=== PATIENT | male | born 1995 | race Two or more races ===

== ENCOUNTER 2019-12-23 16:56 | Emergency (ER) | payer BC ==
[~2019-12-23] VITALS: Ht 175.3 cm; Wt 88.0 kg
[2019-12-23 16:57] VITALS: BP 162/76
[2019-12-23] MEDS ORDERED: valACYclovir 500 MG TABLET. PO STA (17:34)
--- NOTE | 2019-12-23 17:41 | PHYS DOC ---
Past History Past Medical History: Asthma Past Surgical History: No Surgical History Alcohol Use: Occasionally General Adult EDM: Chief Complaint: TESTICULAR PAIN OR INJURY HPI: HPI: 24-year-old male presents with genital ulcers. The patient states that these ulcers started a few days ago. The ulcers are very painful. He went to an urgent care and was diagnosed with molluscum contagiosum. Patient has not been sexually active for several months. He has never had lesions like this before. He denies any other sexual behavior with potential exposure to STD. He has never tested positive for STD. Patient denies fever or chills. Review of Systems: Review of Systems: Constitutional: Denies fever or chills Eyes: Denies change in visual acuity HENT: Denies nasal congestion or sore throat Respiratory: Denies cough or shortness of breath Cardiovascular: Denies chest pain or edema GI: Denies abdominal pain, nausea, vomiting, bloody stools or diarrhea : Scrotal ulcers Musculoskeletal: Denies back pain or joint pain Integument: Denies rash Neurologic: Denies headache, focal weakness or sensory changes Endocrine: Denies polyuria or polydipsia Lymphatic: Denies swollen glands Psychiatric: Denies depression or anxiety Heart Score: Risk Factors: Risk Factors: DM, Current or recent (<one month) smoker, HTN, HLP, family history of CAD, obesity. Risk Scores: Score 0 - 3: 2.5% MACE over next 6 weeks - Discharge Home Score 4 - 6: 20.3% MACE over next 6 weeks - Admit for Clinical Observation Score 7 - 10: 72.7% MACE over next 6 weeks - Early Invasive Strategies Allergies: Allergies: Allergies Coded Allergies Type Severity Reaction Last Updated Verified No Known Drug Allergies 12/23/19 No Physical Exam: PE: Constitutional: Well developed, well nourished, no acute distress, non-toxic appearance. [] HENT: Normocephalic, atraumatic, bilateral external ears normal, oropharynx moist, no oral exudates, nose normal. [] Eyes: PERRLA, EOMI, conjunctiva normal, no discharge. [] Neck: Normal range of motion, no tenderness, supple, no stridor. [] Cardiovascular:Heart rate regular rhythm, no murmur [] Lungs & Thorax: Bilateral breath sounds clear to auscultation [] Abdomen: Bowel sounds normal, soft, no tenderness, no masses, no pulsatile masses. [] Skin: Patient has multiple weeping ulcerations to the penis and base of the scrotum. [] Back: No tenderness, no CVA tenderness. [] Extremities: No tenderness, no cyanosis, no clubbing, ROM intact, no edema. [] Neurologic: Alert and oriented X 3, normal motor function, normal sensory function, no focal deficits noted. [] Psychologic: Affect normal, judgement normal, mood normal. [] Current Patient Data: Vital Signs: Vital Signs Date Time Temp Pulse Resp B/P (MAP) Pulse Ox O2 Delivery O2 Flow Rate FiO2 12/23/19 16:57 98.4 50 18 162/76 (104) 98 12/23/19 16:56 Room Air EKG: EKG: [] Radiology/Procedures: Radiology/Procedures: [] Course & Med Decision Making: Course & Med Decision Making Pertinent Labs and Imaging studies reviewed. (See chart for details) I have ordered an HSV as well as a viral culture. I will treat the patient empirically for same related, syphilis, and herpes. I have ordered 2050 mg of Rocephin IM, 1 g of azithromycin p.o., and a gram of Valtrex p.o. I will discharge him with 7 days of Valtrex 1 g twice daily. He is stable for discharge at this time. [] Dragon Disclaimer: Dragon Disclaimer: This electronic medical record was generated, in whole or in part, using a voice recognition dictation system. Departure Departure: Impression: Primary Impression: Skin ulcer of scrotum Disposition: HOME/RESIDENCE PRIOR TO ADM Condition: STABLE Referrals: ALEXA GIRARD MD (PCP) Scripts Valacyclovir Hcl (VALTREX) 1,000 Mg Tablet 1 TAB PO BID for herpes, #20 TAB Prov: SHAHID CARRANZA DO 12/23/19 Hydrocodone Bit/Acetaminophen (NORCO 5-325 TABLET) 1 Each Tablet 1 TAB PO PRN Q6HRS PRN for PAIN, #14 TAB 0 Refills Prov: SHAHID CARRANZA DO 12/23/19 Justification of Admission: Justification of Admission: Justification of Admission Dx: N/A SHAHID CARRANZA DO Dec 23, 2019 17:40
[2019-12-23] MEDS ORDERED: AZITHROMYCIN 250 MG TABLET. PO ONE (17:45)
[2019-12-23] MEDS ORDERED: cefTRIAXone IM 250 MG VIAL IM ONE (17:45)
[2019-12-23] MEDS ORDERED: VALA10005 PO (18:01)
[2019-12-23] MEDS ORDERED: HYDR-3165 PO (18:01)
[2019-12-23] MEDS ORDERED: LIDOCAINE 1% Multi-Dose 20 ML VIAL. ONE (18:09)
== END 2019-12-23 18:29 | disposition home or self-care (01) ==
LOC: ER 16:56
DX: L98.499 Non-pressure chronic ulcer of skin of other sites with unspecified severity (principal); N50.89 Other specified disorders of the male genital organs; J45.909 Unspecified asthma, uncomplicated
CPT/HCPCS: 87252; 96372; 99283; J0456; J0696

== ENCOUNTER → 2020-02-13 | Outpatient (CLI) | payer BC ==
[~2020-02-13] MED LIST: HYDR-3165 PO; VALA10005 PO
== END ==
LOC: LAB 10:26
PROVIDERS: ATTEND Physician Assistant
DX: Z20.828 Contact with and (suspected) exposure to other viral communicable diseases (principal)
CPT/HCPCS: 36415; 84484

== ENCOUNTER → 2020-07-05 | Outpatient (CLI) | payer BC ==
--- NOTE | 2020-07-05 12:11 | RAD ---
XR SHOULDER_RIGHT 2+ VIEWS DATE: 07/05/2020 11:09 AM INDICATION: RIGHT SHOULDER AND ELBOW PAIN COMPARISON: None. FINDINGS: Bones: There is no evidence of acute fracture or dislocation. Joints: The joint spaces are normal. The acromiohumeral distance is not narrowed. Miscellaneous: No abnormal soft tissue calcifications in the shoulder. IMPRESSION: Normal exam Electronically signed by: Cullen Ellis MD (07/05/2020 12:09 PM) [id number]
--- NOTE | 2020-07-05 13:28 | RAD ---
PROCEDURE: XR ELBOW_RIGHT STUDY DATE: 07/05/2020 CLINICAL INDICATION / HISTORY: Reason: RIGHT SHOULDER AND ELBOW PAIN / Spl. Instructions: / History: . TECHNIQUE: Right Elbow 2 views COMPARISON: None FINDINGS: Two views of the right elbow demonstrate no evidence of fracture, subluxation, or dislocati on. Small osteophyte on the coronoid process of the ulna is noted. Soft tissues unremarkable. 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 Otherw ise negative two-view right elbow. Electronically signed by: Jake Owusu MD (07/05/2020 1:25 PM) [id number]
== END ==
LOC: DXRAD 11:02
PROVIDERS: ATTEND Physician Assistant
DX: M19.021 Primary osteoarthritis, right elbow (principal); M25.721 Osteophyte, right elbow; M25.511 Pain in right shoulder
CPT/HCPCS: 73030; 73070

== ENCOUNTER 2021-01-03 18:20 | Emergency (ER) | payer OTHER, BC ==
[~2021-01-03] VITALS: Ht 175.3 cm; Wt 94.9 kg
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
[2021-01-03 18:29] VITALS: BP 135/73
[2021-01-03] MEDS ORDERED: IBUPROFEN 600 MG TABLET. PO ONE (18:30)
[2021-01-03] MEDS ORDERED: ACETAMINOPHEN 500 MG TABLET PO ONE (18:30)
== END 2021-01-03 18:42 | disposition home or self-care (01) ==
LOC: ER 18:20
DX: M25.511 Pain in right shoulder (principal); M25.512 Pain in left shoulder; J45.909 Unspecified asthma, uncomplicated; V49.9XXA Car occupant (driver) (passenger) injured in unspecified traffic accident, initial encounter; Y93.89 Activity, other specified; Y92.89 Other specified places as the place of occurrence of the external cause; Y99.8 Other external cause status
CPT/HCPCS: 99283